=== PATIENT | male | born 1960 ===

== ENCOUNTER 2018-05-18 17:46 | Inpatient (IN) | payer BC, OTHER ==
[~2018-05-18 17:46] MED LIST: Iopamidol 370 76% 100 ML VIAL ONE; Iopamidol 370 76% 50 ML VIAL FS ONE
[2018-05-18] MEDS ORDERED: Nitroglycerin 2% Ointment 1 INCH/1 GM Packet ONE (17:59)
[2018-05-18 18:08] LABS: #Basophils 0.1 thou/uL (0.0-0.2); #Eosinphils 0.1 thou/uL (0.0-0.7); #Lymphocytes 1.1 thou/uL (1.20-3.40); #Monocytes 0.6 thou/uL (0.11-0.59); #Neutrophils 12.7 thou/uL (1.40-6.50); %Basophils 0.6 % (0.0-1.0); %Eosinophils 0.6 % (0.0-10.0); %Lymphocytes 7.3 % (21.0-51.0); %Monocytes 4.1 % (0.0-10.0); %Neutrophils 87.4 % (42.0-75.0); Hemoglobin 16.1 g/dL (14.0-18.0); Mean Corpuscular HGB CONC 33.5 g/dL (32.0-36.0); Mean Corpuscular Hemoglobin 29.3 pg (27.0-31.0); Mean Corpuscular Volume 87.7 fL (78.0-98.0); Mean Platelet Volume 6.9 fL (7.4-10.4); Platelet Count 276 thou/uL (130-400); Red Blood Cell (RBC) Count 5.49 mill/uL (4.70-6.10); White Blood Cell (WBC) Count 14.5 thou/uL (4.8-10.8)
[2018-05-18 18:22] LABS: ALT (SGPT) 15 U/L (8-55); AST (SGOT) 37 U/L (5-34); Albumin 4.7 g/dL (3.5-5.0); Alkaline Phosphatase 85 U/L (40-150); Anion Gap 18 mmol/L (10-20); BUN (Urea Nitrogen) 15 mg/dL (8.4-25.7); Bilirubin, Total 0.4 mg/dL (0.2-1.2); CK (CPK) 414 U/L (30-200); Calc. Creatinine Clearance 0 mL/min (70-130); Calcium 9.6 mg/dL (7.8-10.44); Carbon Dioxide 22 mmol/L (22-29); Chloride 101 mmol/L (98-107); Estimated GFR-MDRD 56; Globulin 3.4 g/dL (2.4-3.5); Glucose 345 mg/dL (70-105); Potassium 4.3 mmol/L (3.5-5.1); Protein, Total 8.1 g/dL (6.0-8.3); Sodium 137 mmol/L (136-145)
[2018-05-18 18:23] LABS: INR-International Normal Ratio 0.9; PTT 24.4 SEC (22.9-36.1); Prothrombin Time 12.6 SEC (12.0-14.7)
--- NOTE | 2018-05-18 18:31 | RAD ---
UPRIGHT PORTABLE CHEST ONE VIEW: HISTORY: A 57-year-old male with a history of chest pain. COMPARISON: 05/10/2015 FINDINGS: Monitor leads overly the chest. Heart size is within normal limits. Lungs are clear. IMPRESSION: No acute intrathoracic disease. POS: [facility]
[2018-05-18] MEDS ORDERED: Heparin 10,000 UNITS/1 ML VIAL ONE ×2 (18:44→21:20)
[2018-05-18] MEDS ORDERED: Aggrastat 12.5 MG/250 ML 250 ML ONE (18:56)
[2018-05-18 19:01] LABS: CKMB 32.6 ng/mL (0-6.6)
[2018-05-18 20:05] VITALS: BMI 25.7
[2018-05-18] MEDS ORDERED: Nitroglycerin 0.4 MG TAB (25 Tab Bottle) SL PRN (20:19)
[2018-05-18] MEDS ORDERED: Sodium Chloride 0.9% 1,000 ML IV SCH (20:30)
[2018-05-18] MEDS ORDERED: Aggrastat 12.5 MG/250 ML 250 ML IVPB SCH (20:30)
[2018-05-18 20:57] LABS: #Basophils 0.1 thou/uL (0.0-0.2); #Eosinphils 0.1 thou/uL (0.0-0.7); #Lymphocytes 1.6 thou/uL (1.20-3.40); #Neutrophils 14.6 thou/uL (1.40-6.50); %Basophils 0.4 % (0.0-1.0); %Eosinophils 0.4 % (0.0-10.0); %Lymphocytes 9.2 % (21.0-51.0); %Monocytes 5.8 % (0.0-10.0); %Neutrophils 84.2 % (42.0-75.0); Hemoglobin 14.6 g/dL (14.0-18.0); Mean Corpuscular Hemoglobin 29.6 pg (27.0-31.0); Mean Platelet Volume 6.7 fL (7.4-10.4); Platelet Count 288 thou/uL (130-400); Red Blood Cell (RBC) Count 4.95 mill/uL (4.70-6.10); White Blood Cell (WBC) Count 17.4 thou/uL (4.8-10.8)
[2018-05-18] MEDS ORDERED: Nitroglycerin 0.4 MG TAB (25 Tab Bottle) ONE (21:20)
[2018-05-18] MEDS: Morphine 4 MG/ML VIAL SLOW IVP PRN (21:28)
[2018-05-18] MEDS: Atorvastatin Calcium 40 MG TAB PO SCH (21:29)
[2018-05-18] MEDS: TICAGRELOR 90 MG TABLET PO SCH (21:32)
[2018-05-18 21:52] LABS: CKMB Greater than 300.0 ng/mL (0-6.6)
[2018-05-18 21:53] LABS: Troponin I Greater than 45.000 ng/mL (< 0.028)
--- NOTE | 2018-05-18 22:39 | HP ---
CHIEF COMPLAINT: Chest pain. HISTORY OF PRESENT ILLNESS: Mr. Morales is a pleasant 57-year-old white gentleman, who comes to the hospital for chest pain. He was driven by his son. He was found to have an anterior ST elevations on EKG, so the STEMI pager was activated. We arrived and we took him urgently to the catheterization lab, where we found a large thrombus in his LAD. He had very large LAD with aneurysmal dilatation of the left main. We wired this lesion. We did manual thrombectomy, getting some red clot as well as white clot, and decided to balloon and stent. This area was ballooned and stented. He had some residual thrombus that did not get much better after manual thrombectomy, so we decided to put him on Integrilin and transfer him to the ICU. He is doing much better. His pain is just the mild pain he had after opening up the artery and it is not getting any worse. He otherwise denies any other issues for now. PAST MEDICAL HISTORY: Multiple kidney stones. PAST SURGICAL HISTORY: Cystoscopy and lithotripsy. ALLERGIES: NO KNOWN DRUG ALLERGIES. OUTPATIENT MEDICATIONS: None. FAMILY HISTORY: Brother had an MO at 50. Parents all had MIs. His dad had a bypass. Significant early coronary artery disease in family members. SOCIAL HISTORY: No alcohol, no tobacco or drugs. He does admit to dipping and using snuff. REVIEW OF SYSTEMS: A 12-point review of systems was done and was found to be negative other than stated in the history of present illness. PHYSICAL EXAMINATION: VITAL SIGNS: Temperature 98.2, pulse 95, respiratory rate 21, saturation 98% on room air, blood pressure 169/104. GENERAL: Awake, alert, and oriented x3. No distress. HEENT: Normocephalic, atraumatic. NECK: Supple. LUNGS: Clear. CARDIOVASCULAR: S1, S2. No S3 or S4. No murmurs. ABDOMEN: Soft. Positive bowel sounds. EXTREMITIES: No edema. SKIN: Warm and dry. LABORATORY WORK: Showed CBC with white count of 14.5, hemoglobin 16, hematocrit 48, platelet count of 276. Coags were negative. Chemistry, troponin initially was 1.7. Follow up troponin greater than 45 and CK-MB greater than 300. Creatinine 1.31 on admission. EKG was reviewed. Catheterization, chest x-ray was reviewed. ASSESSMENT: Acute anterior ST-elevation myocardial infarction. PLAN: 1. Continue Integrilin drip for a total of 12 hours. 2. Angio-Seal was placed in the right femoral artery, so he should be able to sit up in the next few hours. However, he needs to be on bed rest for the next 12 hours. 3. We will start high dose statin and aspirin, as well as Brilinta. 4. Beta xavi and JAMAR inhibitor in the next 24 to 48 hours as blood pressure allows. 5. Full code. 6. No need for DVT prophylaxis as he is on Aggrastat drip. 7. We will add PPI for stress ulcer prophylaxis. 8. Disposition pending clinical evolution. Job ID: [id number]
[2018-05-19] MEDS: Morphine 4 MG/ML VIAL SLOW IVP PRN (01:30)
[2018-05-19 02:52] LABS: #Lymphocytes 1.6 thou/uL (1.20-3.40); #Monocytes 1.1 thou/uL (0.11-0.59); #Neutrophils 11.5 thou/uL (1.40-6.50); %Basophils 0.2 % (0.0-1.0); %Eosinophils 0.2 % (0.0-10.0); %Monocytes 7.5 % (0.0-10.0); Hemoglobin 14.1 g/dL (14.0-18.0); Mean Corpuscular HGB CONC 33.7 g/dL (32.0-36.0); Mean Corpuscular Hemoglobin 29.1 pg (27.0-31.0); Mean Corpuscular Volume 86.5 fL (78.0-98.0); Mean Platelet Volume 6.7 fL (7.4-10.4); Platelet Count 264 thou/uL (130-400); Red Blood Cell (RBC) Count 4.84 mill/uL (4.70-6.10); White Blood Cell (WBC) Count 14.2 thou/uL (4.8-10.8)
[2018-05-19 03:28] LABS: ALT (SGPT) 83 U/L (8-55); AST (SGOT) 437 U/L (5-34); Albumin 3.9 g/dL (3.5-5.0); Alkaline Phosphatase 70 U/L (40-150); Anion Gap 15 mmol/L (10-20); BUN (Urea Nitrogen) 11 mg/dL (8.4-25.7); Bilirubin, Total 0.7 mg/dL (0.2-1.2); Calc. Creatinine Clearance 91 mL/min (70-130); Carbon Dioxide 23 mmol/L (22-29); Cardiac Risk 6.3 (Less than 4.5); Chloride 102 mmol/L (98-107); Cholesterol 194 mg/dl (< 200 Desired); Estimated GFR-MDRD 72; Globulin 3.1 g/dL (2.4-3.5); Glucose 246 mg/dL (70-105); HDL Cholesterol 31 mg/dL (>60 Neg Risk); LDL Cholesterol, Calculated 101 mg/dL; Sodium 136 mmol/L (136-145); Triglycerides 310 mg/dL (Less than 150)
[2018-05-19 03:40] LABS: CKMB 410.2 ng/mL (0-6.6); Troponin I 190.324 ng/mL (< 0.028)
[2018-05-19 08:56] LABS: #Lymphocytes 1.4 thou/uL (1.20-3.40); #Monocytes 1.1 thou/uL (0.11-0.59); #Neutrophils 11.8 thou/uL (1.40-6.50); %Basophils 0.1 % (0.0-1.0); %Eosinophils 0.3 % (0.0-10.0); %Lymphocytes 9.8 % (21.0-51.0); %Monocytes 7.8 % (0.0-10.0); Hemoglobin 14.6 g/dL (14.0-18.0); Mean Corpuscular HGB CONC 33.4 g/dL (32.0-36.0); Mean Corpuscular Hemoglobin 29.2 pg (27.0-31.0); Mean Corpuscular Volume 87.2 fL (78.0-98.0); Mean Platelet Volume 6.8 fL (7.4-10.4); Platelet Count 267 thou/uL (130-400); RBC Distribution Width 12.2 % (11.5-14.5); Red Blood Cell (RBC) Count 5.01 mill/uL (4.70-6.10); White Blood Cell (WBC) Count 14.4 thou/uL (4.8-10.8)
[2018-05-19] MEDS: TICAGRELOR 90 MG TABLET PO SCH ×2 (09:06→21:33)
[2018-05-19 11:30] LABS: Hemoglobin A1c 10.2 % (4.0-6.0)
--- NOTE | 2018-05-19 11:48 | PDOC.CTH ---
Cardiology Progress Note - Subjective No new issues. Chest pain free. - Objective Vital Signs Temp Pulse Ox 05/19/18 08:00 97.8 F 96 05/19/18 03:00 98 F 05/19/18 00:00 98 F Weight 189 lb 9.561 oz 05/18/18 05/19/18 05/20/18 06:59 06:59 06:59 Intake Total 1787 249 Output Total 1220 200 Balance 567 49 - Physical Examination General/Neuro: alert & oriented x3, NAD Neck: no JVD present Lungs: unlabored respirations Heart: RRR Abdomen: NT/ND Extremities: other: (no edema.) - Telemetry Telemetry Rhythm: NSR - Labs Result Diagrams: 05/19/18 08:38 05/19/18 02:43 Troponin/CKMB CK-MB (CK-2) 410.2 ng/mL (0-6.6) H* 05/19/18 02:43 Troponin I 190.324 ng/mL (< 0.028) H* 05/19/18 02:43 - Assessment/Plan 1, Acute anterior STEMI, late presentation. 2. S/P ALEJANDRO to LAD. 3. Hyperglycemia 4. Pericardial effusion. PLAN: - Continue GENI with brilinta and aspirin - High dose statin - Will add low dose BB. - No ACEI until BP allows.
[2018-05-19 11:49] LABS: CKMB 135.2 ng/mL (0-6.6); Critical Call CKMB RESULT DECREASING
[2018-05-19 12:11] LABS: Troponin I 84.472 ng/mL (< 0.028)
[2018-05-19] MEDS: Atorvastatin Calcium 40 MG TAB PO SCH (21:33)
[2018-05-20] MEDS: TICAGRELOR 90 MG TABLET PO SCH ×2 (09:07→21:29)
--- NOTE | 2018-05-20 17:44 | PDOC.CTH ---
Cardiology Progress Note - Subjective He is doing well. He has been walking around all day without issues. No more chest pain, tightness, pressure, SOB. - Objective Vital Signs Temp Pulse Pulse Pulse Resp BP BP 05/20/18 15:29 97.6 F 85 15 05/20/18 11:07 98.5 F 85 16 05/20/18 10:02 85 87 128/76 122/75 05/20/18 09:03 98.5 F 88 17 05/20/18 08:00 BP Pulse Ox Pulse Ox Pulse Ox 05/20/18 15:29 119/69 96 05/20/18 11:07 119/75 97 05/20/18 10:02 100 97 05/20/18 09:03 140/78 99 05/20/18 08:00 99 Weight 189 lb 9.6 oz 05/19/18 05/20/18 05/21/18 06:59 06:59 06:59 Intake Total 1787 1409 Output Total 1220 1525 Balance 567 -116 - Physical Examination General/Neuro: alert & oriented x3, NAD Neck: no JVD present Lungs: CTA, unlabored respirations Heart: RRR Abdomen: NT/ND Extremities: other: (no edema.) - Telemetry Telemetry Rhythm: NSR - Labs Result Diagrams: 05/19/18 08:38 05/19/18 02:43 Troponin/CKMB CK-MB (CK-2) 135.2 ng/mL (0-6.6) H* 05/19/18 11:02 Troponin I 84.472 ng/mL (< 0.028) H* 05/19/18 11:02 - Assessment/Plan 1, Acute anterior STEMI, late presentation. 2. S/P ALEJANDRO to LAD. 3. Hyperglycemia 4. Pericardial effusion. 5. Dilated CM EF at 30-35% PLAN: - Continue GENI with brilinta and aspirin - High dose statin - Continue low dose BB. - Will start very low dose Lisinopril - Will need a Lifevest before discharge.
[2018-05-20] MEDS: Atorvastatin Calcium 40 MG TAB PO SCH (21:29)
[2018-05-21 07:28] VITALS: TEMP 97.8
[2018-05-21] MEDS ORDERED: Lisinopril 2.5 MG TAB PO SCH (09:00)
[2018-05-21] MEDS: TICAGRELOR 90 MG TABLET PO SCH (09:01)
[2018-05-21 11:47] VITALS: BP 118/80
--- NOTE | 2018-05-21 20:06 | DIS ---
DATE OF ADMISSION: 05/18/2018 DATE OF DISCHARGE: 05/21/2018 DISCHARGING PHYSICIAN: Golden Acosta MD. PRIMARY DIAGNOSES: 1. Acute anterior ST-elevation myocardial infarction. 2. Ischemic cardiomyopathy. 3. left ventricular dilated cardiomyopathy. 4. EF at 30% to 35%. SUMMARY: Mr. Morales is a pleasant 57-year-old white gentleman who came to the hospital for chest pain. He had been having chest pain for at least 6 to 12 hours before presentation. He was found to have ST elevation in the anterior leads with big Q-waves. He was taken to the catheterization lab, where he was found to have a large clot burden on the proximal LAD. This was ballooned open. Manual thrombectomy was done showing red clot and some white clot, and he had a stent placed to this area with good results. There was some thrombus left just prior to it and some distal embolization. He had mild chest pain afterwards, but he was kept on Aggrastat drip for 12 hours, his pain got better within the first 6 hours and he did well. Echocardiogram showed an EF of 30% to 35%, with anterior and apical akinesis, so he was placed on a LifeVest before discharge. He was started on optimal medical therapy and dual antiplatelet therapy and high dose statins. He did well, he walked around the halls without any symptoms, he felt better, not even short winded. Discharge medications were reviewed. He will attend cardiac rehab. LifeVest in place before discharge. Over 30 minutes was spent at bedside counseling for discharge. Job ID: [id number]
== END 2018-05-21 14:12 | disposition home or self-care (01) | DRG 247 ==
LOC: ERS 17:46 → CCL 18:03 → CCU 18:33 → 2NO 05-19 16:46
PROVIDERS: ADMIT Internal Medicine Cardiovascular Disease; ATTEND Internal Medicine Cardiovascular Disease
PROC: 027034Z Dilation of Coronary Artery, One Artery with Drug-eluting Intraluminal Device, Percutaneous Approach (ICD-10-PCS; principal; 2018-05-18)
PROC: 4A023N7 Measurement of Cardiac Sampling and Pressure, Left Heart, Percutaneous Approach (ICD-10-PCS; 2018-05-18)
PROC: B2111ZZ Fluoroscopy of Multiple Coronary Arteries using Low Osmolar Contrast (ICD-10-PCS; 2018-05-18)
PROC: B2151ZZ Fluoroscopy of Left Heart using Low Osmolar Contrast (ICD-10-PCS; 2018-05-18)
DX: I21.3 ST elevation (STEMI) myocardial infarction of unspecified site (principal); I31.3 Pericardial effusion (noninflammatory); Z87.442 Personal history of urinary calculi; I25.5 Ischemic cardiomyopathy; R73.9 Hyperglycemia, unspecified
CPT/HCPCS: 36415; 71045; 80053; 80061; 82550; 82553; 83036; 84443; 84484; 85025; 85347; 85610; 85730; 86850; 86900; 86901; 92941; 92977; 93005; 93010; 93306; 93458; 93798; 94760; 96374; C1757; C1760; C1769; C1874; C9606; J1644; J2270; J3246